=== PATIENT | male | born 1960 | race Hispanic/Latino ===

== ENCOUNTER → 2017-12-29 | Outpatient (CLI) | payer OTHER ==
[~2017-12-29] MED LIST: IOHEXOL-350 75 ML VIAL IV ONE
== END | disposition home or self-care (01) ==
LOC: DAH 07:56
PROVIDERS: ATTEND Nurse Practitioner Family
DX: K42.9 Umbilical hernia without obstruction or gangrene (principal); K44.9 Diaphragmatic hernia without obstruction or gangrene; N28.1 Cyst of kidney, acquired; M47.895 Other spondylosis, thoracolumbar region; K76.0 Fatty (change of) liver, not elsewhere classified; I70.90 Unspecified atherosclerosis; N32.89 Other specified disorders of bladder
CPT/HCPCS: 74170; Q9967